=== PATIENT | female | born 1970 | race Caucasian/White ===

== ENCOUNTER 2016-06-11 21:27 | Emergency (ER) | payer OTHER ==
[2016-06-11] MEDS ORDERED: IPRATROPIUM/ALBUTEROL 3 ML DEYVIAL IH ONE (21:50)
[2016-06-11] MEDS ORDERED: IPRATROPIUM/ALBUTEROL 3 ML DEYVIAL ONE (21:50)
[2016-06-11 22:10] VITALS: TEMP 98.4
[2016-06-11] MEDS ORDERED: ALBUTEROL 3 ML DEYVIAL ONE (22:24)
[2016-06-11] MEDS ORDERED: ALBUTEROL 3 ML DEYVIAL IH ONE (22:26)
--- NOTE | 2016-06-11 22:53 | UCPHY ---
H & P Time Seen by Provider: 06/11/16 21:50 Patient Type: Established HPI/ROS: 46-year-old female presents complaining of cough, with history of reactive airway disease often following colds. She has had possible fever mild chills, nasal congestion and a few drops of blood with her cough as well as pinkish sputum at times She denies recent travel she denies leg pain or leg swelling calf pain. Review of systems General n positive fever positive chills no weakness HEENT no eye pain no eye discharge. No eye redness, no sore throat Respiratory positive cough no shortness of breath Cardiac no chest pain, no peripheral edema GI no abdominal pain, no diarrhea, no constipation, no nausea, no vomiting no flank pain, no hematuria, no dysuria Musculoskeletal no myalgias, no joint pain Heme no easy bruising, no easy bleeding Endo no polyuria, no polydipsia Skin no rashes, no pruritus Neuro no syncope, no dizziness, no headaches Psych is no suicidal ideation, no homicidal ideation Social History: student outreach coordinator Smoking Status: Never smoked Physical Exam: 46-year-old female Bronchospastic cough Alert and oriented nontoxic appearance, no acute distress afebrile Atraumatic normocephalic Extraocular muscles intact, anicteric Nares mild yellowish discharge Oropharynx mild erythema no tonsillar swelling no exudate no uvular deviation, tolerating own secretions Neck supple no lymphadenopathy Lungs clear to auscultation bilaterally Heart regular rate and rhythm Abdomen normoactive bowel sounds soft nontender Extremities no cyanosis clubbing or edema Skin no rash 46-year-old female alert and oriented Constitutional: Initial Vital Signs Temperature (C) 36.9 C 06/11/16 22:07 Heart Rate 101 H 06/11/16 22:07 Respiratory Rate 20 06/11/16 22:07 Blood Pressure 171/108 H 06/11/16 22:07 O2 Sat (%) 96 06/11/16 22:07 O2 Delivery Mode Room Air Allergies/Adverse Reactions: amoxicillin [Amoxicillin] Allergy (Verified 07/17/15 17:44) divalproex sodium [From Depakote] Allergy (Verified 07/17/15 17:44) erythromycin lactobionate [From Erythrocin] Allergy (Verified 07/17/15 17:44) Home Medications: Medication Instructions Recorded Albuterol Hfa Anes Only [Proair 2 puffs IH Q4 PRN #1 mdi 07/17/15 Hfa Icu (*)] Fluticasone Hfa 220 Mcg [Flovent 2 puffs IH DAILY #1 mdi 07/17/15 220 MCG Hfa MDI (*)] Acetaminophen with Codeine 1 each PO DAILY PRN #10 tablet 06/11/16 [Acetaminophen-Cod #4 Tablet] levOFLOXACIN [levAQUIN (*)] 500 mg PO DAILY 7 Days 06/11/16 methylPREDNISolone [Medrol Dose 1 each PO AD #1 ea 06/11/16 Saurav] Medical Decision Making - Diagnostics Imaging: Chest x-ray negative for infiltrate or effusion ED Course/Re-evaluation: Patient seen and evaluated for cough fevers chills pinkish sputum occasional spots of blood Influenza negative Strep negative Chest x-ray negative Patient given a DuoNeb, albuterol neb, prednisone 60 mg and Levaquin 500 mg Differential diagnosis considered Bronchitis, influenza, reactive airway disease, pneumonia Impression Bronchitis with reactive airway Plan Continue albuterol Flovent inhalers Medrol Dosepak to start tomorrow Levaquin 500 mg q.day x7 days Keep her appointment with primary care this week - Data Points Laboratory Results: 06/11/16 06/11/16 06/11/16 Unknown 22:20 22:20 Influenza Typ A,B (DFA) NEGATIVE FOR FLU (NEGATIVE) Group A Strep Screen NEGATIVE (NEGATIVE) Group A Strep DNA Pending Medications Given: Discontinued Medications Albuterol (Proventil Neb) 3 ml IH EDNOW ONE Stop: 06/11/16 22:27 Last Admin: 06/11/16 22:28 Dose: 3 ml Albuterol/Ipratropium (Duoneb) 3 ml IH EDNOW ONE Stop: 06/11/16 21:51 Last Admin: 06/11/16 21:50 Dose: 3 ml Levofloxacin (Levaquin) 500 mg PO EDNOW ONE PRN Reason: Protocol Stop: 06/11/16 23:06 Last Admin: 06/11/16 23:12 Dose: 500 mg Prednisone (Prednisone) 60 mg PO EDNOW ONE Stop: 06/11/16 23:07 Last Admin: 06/11/16 23:12 Dose: 60 mg Departure - Departure Disposition: Home, Routine, Self-Care Clinical Impression: Bronchitis Condition: Good Instructions: Acute Bronchitis (ED) Referrals: Marlene Encinas MD [Primary Care Provider] - As per Instructions Prescriptions: Acetaminophen with Codeine [Acetaminophen-Cod #4 Tablet] 1 each PO DAILY PRN # 10 tablet PRN Reason: Cough, Severe levOFLOXACIN [levAQUIN (*)] 500 mg PO DAILY 7 Days methylPREDNISolone [Medrol Dose Saurav] 1 each PO AD #1 ea - PQRS PQRS Measurement: na
[2016-06-11] MEDS ORDERED: predniSONE 20 MG TAB PO ONE (23:06)
[2016-06-11] MEDS ORDERED: predniSONE 20 MG TAB ONE (23:07)
[2016-06-11 23:17] VITALS: BP 134/97; PULSE 92; RESP 18; O2SAT 95
== END 2016-06-11 23:17 | disposition home or self-care (01) ==
LOC: CED 21:27
DX: J40 Bronchitis, not specified as acute or chronic (principal); Z88.1 Allergy status to other antibiotic agents
CPT/HCPCS: 71020-PO; 87400-PO; 87880-PO; 99214-PO; G0463-PO